=== PATIENT | female | born 1990 | race Caucasian/White ===

== ENCOUNTER 2024-08-24 06:00 | Inpatient (IN) | payer OTHER, SELFPAY ==
[2024-08-24] VITALS (133 sets, daily range): BP systolic 81–136; BP diastolic 40–97; PULSE 73–124; RESP 14–18; TEMP 36.3–36.8; O2SAT 93–100; BMI 31.1
[2024-08-24 07:16] LABS: Hematocrit 30.6 % (37.0-47.0); Hemoglobin 9.5 g/dL (12.0-15.0); Immature Granulocyte Percent A 0.6 % (0-0.5); Lymphocytes Absolute Auto 2.19 K/mm3 (0.9-3.2); Mean Corpuscular HGB Conc 31.0 g/dl (32-36); Mean Corpuscular Hemoglobin 24.4 pg (26-34); Mean Corpuscular Volume 78.5 fl (80-100); Nucleated Red Blood Cells Absolute Auto 0.000 K/mm3 (0.0-0.012); Nucleated Red Blood Cells Perc 0.0 % (0.0-0.2); Platelet Count Result 344 k/mm3 (150-375); Red Blood Count 3.90 M/mm3 (4.2-5.4); White Blood Count 11.3 K/mm3 (4.5-10.0)
[2024-08-24] MEDS: LACTATED RINGERS 1,000 ML 125 ML IV CONT ×2 (07:24→09:22)
[2024-08-24] MEDS: OXYTOCIN 30 UNITS/NS 500 ML 30 UNITS/500 ML BAG IV CONT (07:40)
--- NOTE | 2024-08-24 08:27 | LDADM ---
This patient, Krysta Leon, was admitted to Labor/Delivery/Recovery 106 on 08/24/24 at 06:00. Plans for labor, pain management and were discussed with patient. Patient/family oriented to hospital policies and general routines including ID bracelet, bed and alarms, visiting hours, pain management, procedures, bathroom and other care routines, personal items, smoking policy, room service/diet and guest tray routines, security routines, and visiting hours. Patient/Family are encouraged to report perceived risks to care and to ask questions if they do not understand what they are told or what they should do. See OBIX for further documentation.
[2024-08-24 08:30] LABS: Syphilis IgG/IgM Antibody Non-Reactive (Nonreactive)
--- NOTE | 2024-08-24 08:53 | WPDOBADMIT ---
Obstetrics - Admit Note Admission Note: record reviewed. No pertinent additions to the history and/or any subsequent changes in the physical findings that are not consistent with the expected course of the were found. Admitted for EIL, . AROM of clear fluid, SVE /-2. Pitocin per protocol Additions to the history and/or subsequent changes in the physical findings follow. None.
[2024-08-24] MEDS: SODIUM CHLORIDE 0.9% IV 300 ML 600 ML I-UTERINE (12:14)
[2024-08-24] MEDS: OXYTOCIN 30 UNITS/NS 500 ML 30 UNITS/500 ML BAG 125 UNITS IV CONT (14:01)
[2024-08-24] MEDS: IBUPROFEN 600 MG TABLET PO (16:18)
[2024-08-24] MEDS: ACETAMINOPHEN 325 MG TABLET 650 MG PO (16:18)
[2024-08-24] MEDS: WITCH HAZEL 40 PADS 1 PAD TOPICAL (16:38)
[2024-08-24] MEDS: BENZOCAINE 20% AER SPR (*SP) 56 GM CAN 1 SPRAY TOPICAL (16:38)
--- NOTE | 2024-08-24 17:34 | PC.NURSE ---
Patient transferred to post room #284 via wheelchair. Support person present. Oriented to unit, room, information board, rooming in, admission packet and security measures. Patient verbalizes understanding.
[2024-08-24] MEDS: FERROUS SULFATE 325 MG TABLET DR BY MOUTH (18:17)
[2024-08-25 00:20] VITALS: BP 103/45; PULSE 78; RESP 18; TEMP 36.3; O2SAT 99
[2024-08-25] MEDS: IBUPROFEN 600 MG TABLET PO ×2 (00:20→08:34)
[2024-08-25] MEDS: ACETAMINOPHEN 325 MG TABLET 650 MG PO ×2 (00:20→08:34)
[2024-08-25 04:00] VITALS: BP 104/55; PULSE 70; RESP 16; TEMP 36.6; O2SAT 99
[2024-08-25 04:54] LABS: Hematocrit 28.1 % (37.0-47.0); Hemoglobin 8.7 g/dL (12.0-15.0)
--- NOTE | 2024-08-25 07:39 | P.PNOB_ITS ---
OB - PN: Subj Subjective Date/time seen: 08/25/24 07:39 Interval history: pp day 1 doing well plans d/c home OB - PN: Obj Data Labs 08/25/24 03:51 Labs: Laboratory Results - last 24 hr 08/24/24 08/25/24 07:10 03:51 Hgb 8.7 L Hct 28.1 L Syphilis IgG/IgM Ab Non-reactive Blood Type O Positive Antibody Screen Negative OB - PN A/P Plan day: 1 Plan: routine care and discharge home Time Spent With Patient Time: Total time spent is greater than 50% in coordination of care (as documented) at patient's floor/unit and/or counseling patient: Review of Systems 2 Review of Systems: All systems reviewed & are unremarkable except as noted in HPI and below Exam 2 Const: General: cooperative, healthy appearing and comfortable Chest: Chest palpation & inspection: normal inspection of the chest Resp: Effort & Inspection: normal respiratory effort Cardio: Rate: regular rate
--- NOTE | 2024-08-25 07:45 | PM.OBDSVD ---
DS: Admitting Diagnosis Discharge Date 08/25/24 Admitting Diagnosis IOL DS: Discharge Diagnosis Discharge Diagnosis (1) (normal spontaneous vaginal delivery): Code(s): O80 - Encounter for full-term uncomplicated delivery Status: Acute OB - DS: Summary OB Procedures : None OB Procedures Intrapartum: Spontaneous Vag Delivery OB Procedures: : None Time Spent with Patient Time attestation: Total time spent providing and/or coordinating discharge services: DS: Data Data Completed and Pending Labs on day of discharge: Labs from last 24 hours 08/25/24 08/24/24 03:51 07:10 Hgb 8.7 L Hct 28.1 L Syphilis IgG/IgM Ab Non-reactive Blood Type O Positive Antibody Screen Negative Discharge Plan Discharge Attending physician on discharge: Aren Gunderson Discharging Clinician: Helen Avelar Patient Disposition: Home Activity: as tolerated Diet: regular Patient Instructions: Antibiotic Form Patient Language: Portuguese Stand Alone Forms: General Discharge Information Follow-up/Referrals: Aren Gunderson MD [Physician] - 4 Weeks Discharge Medications: Continued PNV [id number] fumarate-FA [] 28 mg iron- 800 mcg Tablet 1 tablet PO DAILY ferrous sulfate 325 mg (65 mg iron) Tablet 325 mg PO BID Date of admission: 08/24/24 06:00 Primary Care Provider: Ezequiel,Liv El Admitting Provider: Aren Gunderson Attending physician on admission: Aren Gunderson Condition: Stable
[2024-08-25 08:05] VITALS: BP 105/58; PULSE 84; RESP 16; TEMP 36.6; O2SAT 99
[2024-08-25] MEDS: DOCUSATE SODIUM 100 MG CAPSULE PO (08:34)
[2024-08-25] MEDS: FERROUS SULFATE 325 MG TABLET DR BY MOUTH (08:34)
[2024-08-25] MEDS: MULTIVIT/MIN/PREN/FOL AC/IRON TABLET 1 TAB PO (08:34)
--- NOTE | 2024-08-25 08:58 | PC.NURSE ---
Introductions were made, then consulted with patient to assess needs related to . Mother led the conversation with her?plans to feed?her infant and the?experience so far. Mother plans to pump and feed infant and is currently feeding both EMB and formula. Mother has an [employer] hands free breast pump at home that she plans to use after discharge. Reviewed with patient storage of breastmilk. No further education needed at this time. Patient will call if any questions arise. Outpatient information provided.
--- NOTE | 2024-08-25 11:49 | PC.NURSE ---
Patient viewed the discharge video Mother & Baby Care, The First Two Weeks. Patient was given the opportunity and encouraged to ask questions. Patient verbalized understanding of information shared and has been given the mother/baby guide for home reference.
[2024-08-25 12:29] VITALS: BP 110/61; PULSE 83; RESP 16; TEMP 37.1; O2SAT 98
--- NOTE | 2024-08-25 13:14 | WPDANLDPN2 ---
Anes-Prog Note L&D Date/Time: 08/25/24 13:14 Comfortable throughout: labor and delivery Neuraxial method: epidural Epidural/Spinal procedure site: clean & non-tender Neuro status: Neuro function grossly intact. Cardiovascular status: normal Respiratory status: normal Airway patency: baseline Mental status: baseline Post-Op hydration status: normal Vital Signs: Last Vital Signs Temp 37.1 C 08/25/24 12:29 Pulse 83 08/25/24 12:29 Resp 16 08/25/24 12:29 BP 110/61 08/25/24 12:29 Pulse Ox 98 08/25/24 12:29 O2 Del Method Room Air 08/25/24 08:30 Pain score (VAS): 1 I/O: Intake & Output 08/24/24 08/25/24 08/25/24 23:59 07:59 15:59 Intake Total 0 Output Total 110 Balance -110 0 Post-procedural complaints: none Patient feedback: Patient satisfied with anesthetic care.
--- NOTE | 2024-08-25 13:18 | WPDANLDPN2 ---
Anes-Prog Note L&D Date/Time: 08/25/24 13:18 Comfortable throughout: labor and delivery Neuraxial method: epidural Epidural/Spinal procedure site: clean & non-tender Neuro status: Neuro function grossly intact. Cardiovascular status: normal Respiratory status: normal Airway patency: baseline Mental status: baseline Post-Op hydration status: normal Vital Signs: Last Vital Signs Temp 37.1 C 08/25/24 12:29 Pulse 83 08/25/24 12:29 Resp 16 08/25/24 12:29 BP 110/61 08/25/24 12:29 Pulse Ox 98 08/25/24 12:29 O2 Del Method Room Air 08/25/24 08:30 Pain score (VAS): 02/26 I/O: Intake & Output 08/24/24 08/25/24 08/25/24 23:59 07:59 15:59 Intake Total 0 Output Total 110 Balance -110 0 Post-procedural complaints: none Patient feedback: Patient satisfied with anesthetic care.
[2024-08-25] MEDS: TETANUS,DIPHTHERIA,AC PERTUSSIS ADULT (0.5 ML) BOOSTRIX IM (13:47)
[2024-08-26 10:22] VITALS: BP 123/78; PULSE 89; RESP 18; TEMP 36.7; O2SAT 98
--- NOTE | 2024-08-27 12:21 | P.PCNOB_ITS ---
OB - Vaginal Delivery Note Procedure Delivery date: 08/24/24 Events: Elective Induction of Labor Induction method: AROM and Per Pitocin Protocol Delivery monitor: External FHT and External Uterine Route of delivery: Episiotomy description: None Laceration Description: None Specimen: No Quantitative Blood Loss (ml): 50 Anesthesia type: Epidural Disposition: Floor Complications: No immediate complications Narrative: See H&P and notes for details on patient's admission and labor. She progressed to complete cervical dilation and at the appropriate time began pushing. With adequate expulsive efforts by the mother, the baby's head was delivered without difficulty. Nuchal cord was present x1. The baby's right shoulder was anterior and delivered under the pubic symphysis without difficulty. The posterior evert ulder and the rest of the baby delivered without difficulty. The umbilical cord was doubly clamped and cut after 60 seconds of delayed cord clamping. Care of the infant was then assumed by the nursing staff. Baby Date of : 08/24/24 Gestational Age by Date: 39 Infant gender: Male presentation: vertex position: Left Occiput Anterior Placenta delivery description: Spontaneous Cord Vessel Description: 3 Vessels and Delayed Cord Clamping
== END 2024-08-25 15:02 | disposition home or self-care (01) | DRG 807 ==
LOC: ANHLDR 06:10 → ANHOB2 17:39
PROVIDERS: Admitting Provider Obstetrics & Gynecology; PCP Family Medicine; Visit Provider Obstetrics & Gynecology
DX: O99.02 Anemia complicating childbirth (principal); Z37.0 Single live birth; Z3A.39 39 weeks gestation of pregnancy; D64.9 Anemia, unspecified; Z14.8 Genetic carrier of other disease; O69.81X0 Labor and delivery complicated by cord around neck, without compression, not applicable or unspecified; O70.0 First degree perineal laceration during delivery
CPT/HCPCS: 36415; 85014; 85018; 85025; 86593; 86850; 86900; 86901; 90715; A9270; J2590; J2795; J7030; J7120